=== PATIENT | male | born 1985 | race African-American/Black ===

== ENCOUNTER 2017-01-16 17:39 | Emergency (ER) | payer BC | END 2017-01-16 21:12 | disposition home or self-care (01) | LOC: D.ER 17:39 | DX: S16.1XXA Strain of muscle, fascia and tendon at neck level, initial encounter (principal); X58.XXXA Exposure to other specified factors, initial encounter; Y93.89 Activity, other specified; Y92.029 Unspecified place in mobile home as the place of occurrence of the external cause ==

== ENCOUNTER 2017-09-13 23:48 | Emergency (ER) | payer BC ==
[~2017-09-13] VITALS: Ht 175.3 cm; Wt 154.5 kg
[2017-09-13 23:52] VITALS: Ht 175.3 cm; Wt 154.5 kg
[2017-09-14 01:09] LABS: BASOPHILS 0.1 % (0-2); EOSINOPHILS 2.2 % (0-7); HEMATOCRIT 37.3 % (42.0-54.0); HEMOGLOBIN 12.7 g/dL (13.5-17.5); IMMATURE GRANULOCYTES 0.1 % (0-5); MCH 28.7 pg (26.0-34.0); MCV 84.2 fL (80.0-100.0); MEAN PLATELET VOLUME 11.3 fL (7.4-10.4); MONOCYTES 6.7 % (2-11); NEUTROPHILS 54.9 % (40-80); RBC 4.43 10x6/uL (4.20-6.10); RDW 12.9 % (11.5-14.5); WBC 7.3 10x3/uL (4.8-10.8)
[2017-09-14 01:17] LABS: PLATELET COUNT 202 10x3/uL (130-400)
[2017-09-14 01:35] LABS: ALBUMIN 3.1 g/dL (3.4-5.0); ALKALINE PHOSPHATASE 81 U/L (46-116); ALT (SGPT) 25 U/L (10-68); CALC OSMOLALITY 281 mosm/kg (275-300); CALCIUM 8.7 mg/dL (8.5-10.1); CARBON DIOXIDE 29.5 mmol/L (21.0-32.0); CHLORIDE - SERUM 106 mmol/L (98-107); CREATININE - SERUM 1.1 mg/dL (0.6-1.3); GLUCOSE 103 mg/dL (74-106); PROTEIN - SERUM 7.3 g/dL (6.4-8.2); SODIUM 142 mmol/L (136-145); UREA NITROGEN 11 mg/dL (7-18); eGFR NON AFRICAN AMERICAN 81 mL/min (90-120)
[2017-09-14 01:37] LABS: APPEARANCE CLEAR (CLEAR); BILIRUBIN NEGATIVE (NEGATIVE); COLOR YELLOW (YELLOW); GLUCOSE NEGATIVE (NEGATIVE); KETONE NEGATIVE (NEGATIVE); NITRITE NEGATIVE (NEGATIVE); PH 5.5 (5.0-6.0); PROTEIN NEGATIVE (NEGATIVE); UROBILINOGEN NORMAL (NORMAL)
[2017-09-14] MEDS ORDERED: NAPROSYN500 MG PO (02:51)
[2017-09-14 03:06] VITALS: BP 116/69
== END 2017-09-14 03:07 | disposition home or self-care (01) ==
LOC: D.ER 23:48
PROVIDERS: Family Medicine
DX: G62.9 Polyneuropathy, unspecified (principal); S39.011A Strain of muscle, fascia and tendon of abdomen, initial encounter; X58.XXXA Exposure to other specified factors, initial encounter; Y93.89 Activity, other specified; Y92.89 Other specified places as the place of occurrence of the external cause; R10.9 Unspecified abdominal pain

== ENCOUNTER → 2017-10-28 09:22 | Outpatient (CLI) | payer BC ==
[2017-09-13 23:52] VITALS: BMI 50.3
[~2017-10-28 09:22] MED LIST: NAPROSYN500 MG PO
== END | disposition home or self-care (01) ==
LOC: D.US 09:22
DX: R60.0 Localized edema (principal)

== ENCOUNTER 2018-05-21 14:10 | Emergency (ER) | payer BC ==
[~2018-05-21] VITALS: Ht 175.3 cm; Wt 187.3 kg
[2018-05-21 14:12] VITALS: Ht 175.3 cm; Wt 187.3 kg
[2018-05-21] MEDS ORDERED: TYLENOL W/CODEI1 TAB PO (15:03)
[2018-05-21] MEDS ORDERED: SULFAMETHOXAZOL1 TA3 PO (15:03)
[2018-05-21 15:38] VITALS: BP 119/76
== END 2018-05-21 15:38 | disposition home or self-care (01) ==
LOC: D.ER 14:10
DX: L02.12 Furuncle of neck (principal); I10 Essential (primary) hypertension

== ENCOUNTER → 2018-12-18 17:02 | Outpatient (CLI) | payer BC ==
[2018-05-21 14:12] VITALS: BMI 61.0
[~2018-12-18 17:02] MED LIST changes: +SULFAMETHOXAZOL1 TA3 PO; +TYLENOL W/CODEI1 TAB PO
== END | disposition home or self-care (01) ==
LOC: D.RAD 17:02
PROVIDERS: ATTEND Family Medicine
DX: M79.672 Pain in left foot (principal)

== ENCOUNTER → 2019-03-07 14:28 | Outpatient (CLI) | payer BC ==
[2018-05-21 14:12] VITALS: BMI 61.0
== END | disposition home or self-care (01) ==
LOC: D.US 13:00
PROVIDERS: ATTEND Surgery
DX: I87.2 Venous insufficiency (chronic) (peripheral) (principal)

== ENCOUNTER 2019-05-22 19:52 | Emergency (ER) | payer BC ==
[~2019-05-22] VITALS: Ht 175.3 cm; Wt 215.9 kg
[2019-05-22 20:06] VITALS: Ht 175.3 cm; Wt 215.9 kg
[2019-05-22] MEDS ORDERED: STERAPRED DS 1010 MG PO (21:25)
[2019-05-22] MEDS ORDERED: MUCINEX DM ER1 EAC1 PO (21:25)
[2019-05-22] MEDS ORDERED: ZPAK PO (21:25)
[2019-05-22 22:16] VITALS: BP 125/76
== END 2019-05-22 22:17 | disposition home or self-care (01) ==
LOC: D.ER 19:52
DX: J06.9 Acute upper respiratory infection, unspecified (principal); J40 Bronchitis, not specified as acute or chronic

== ENCOUNTER → 2019-11-29 09:41 | Outpatient (CLI) | payer BC ==
[2019-05-22 20:06] VITALS: BMI 70.3
[~2019-11-29 09:41] MED LIST changes: +MUCINEX DM ER1 EAC1 PO; +STERAPRED DS 1010 MG PO; +ZPAK PO
== END | disposition home or self-care (01) ==
LOC: D.MRI 09:41
PROVIDERS: ATTEND Clinical Nurse Specialist Family Health
DX: M25.562 Pain in left knee (principal)

== ENCOUNTER 2019-12-21 06:05 | Day surgery (SDC) | payer BC ==
[2019-12-19 13:50] LABS: HEMATOCRIT 41.9 % (42.0-54.0); HEMOGLOBIN 13.6 g/dL (13.5-17.5); MCH 28.3 pg (26.0-34.0); MCHC 32.5 g/dL (31.0-37.0); MCV 87.3 fL (80.0-100.0); MEAN PLATELET VOLUME 10.8 fL (7.4-10.4); RBC 4.8 10x6/uL (4.20-6.10); WBC 6.9 10x3/uL (4.8-10.8)
[~2019-12-21] VITALS: Ht 175.3 cm; Wt 191.0 kg
[2019-12-21 07:18] VITALS: BP 151/73; Ht 175.3 cm; Wt 191.0 kg
--- NOTE | 2019-12-21 11:41 | NUR ---
IV D/C'D WITH CANNULA INTACT, PRESSURE HELD AND DRSG PLACED. DISCHARGE INSTRUCTIONS GIVEN AND PT VERBALIZED AN UNDERSTANDING. OPERATIVE SITE IS WITH CDI DRSG AND UNCHANGED. DISCHARGED WITHOUT C/O
--- NOTE | 2019-12-22 09:02 | OP ---
PATIENT NAME: OLMAN HINKLE MEDICAL RECORD: [id number] [facility]ATION:[facility] AD[facility]ION DATE: SURGEON: TANG SEAMAN DO DATE OF OPERATION: 12/21/2019 PROCEDURE PERFORMED: Right knee arthroscopy with partial medial and partial lateral meniscectomies. 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 INDICATIONS: Mr. Hinkle is a 34-year-old male who has had right knee pain for quite some time. He is quite heavy as he weighs 421 pounds and 5 feet 9. I did get an MRI which showed the above findings and he has had this pain for quite some time. I informed him that we could get in there and trim out the meniscal tears, then hopefully give him some relief but that weight loss would be the best way to relieve his knee pain. He is aware of that and he is aware of the risks of surgery including infection, bleeding, damage to nerves or vessels, need for further surgery, continued pain, retear of the meniscus, blood clots, and even and he signed the consent. SURGEON: Tang Seaman DO DESCRIPTION OF PROCEDURE: The patient was taken to the operative suite and laid in supine position. He was given general anesthetic, sedated, and intubated. He was given 3 g of Ancef preoperatively. The right lower extremity was then prepped and draped in sterile fashion. Time-out was performed. Everyone was in agreement with the correct site, side, patient, and procedure. I began by flexing the knee down and making an incision over the further lateral portal and entered the trocar into the knee. I then inspected suprapatellar pouch. I saw some cartilage loose bodies seen there in the lateral gutter. These were flushed out with suction. In the medial gutter, there were no loose bodies. I then brought the knee from extension to flexion. I went to the medial compartment. The medial portal was then established with an 18-gauge spinal needle and 11-blade scalpel. Trocar was then brought in. I then brought in a biter and with valgus force on the knee with the assistance of Roddy Rangel, certified surgical supplies sterilizer, I opened up the medial knee joint and bit back with a biter and a shaver the meniscal tear on the medial meniscus from the posterior horn of the middle portion of the meniscus. I then noted grade III chondromalacia over the weightbearing portion of the medial femoral condyle and there were no loose bodies seen in it or loose meniscal pieces. I then checked the ACL. It was good. I then [id number]'ed the knee. I went to the lateral aspect of the knee. The lateral femoral condyle was in good repair. There was some grade III chondromalacia on the tibial plateau, the lateral femoral condyle and there was a tear in the white-white zone of the lateral meniscus. I then brought the shaver in and trimmed that back. I did a partial meniscectomy in the lateral side. I then inspected the trochlea. It had some cartilage tears and I with shaver debrided them and removed them and then removed any other loose bodies in the knee. The cartilage was floating around. I turned on the suction, turned the water off, removed excess fluid from the knee. Roddy Rangel, certified surgical supplies sterilizer, then injected the portal sites with 0.25% Marcaine with epinephrine approximately 5 mL in each and then closed OPERATIVE REPORT [id number] OLMAN HINKLE the portal sites with 4-0 Monocryl in inverted interrupted fashion, dressed with Steri-Strips, Adaptic, 4 x 4, ABD, Webril, Yakov wrap. He was then awakened and taken to recovery in stable condition. BLOOD LOSS: Minimal. COMPLICATIONS: None. 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 12/21/19 [facility] [address] [place] [address]
== END 2019-12-21 11:30 | disposition home or self-care (01) ==
LOC: D.OPS 06:05 → D.PAN 17:00 → D.OPS 17:00
PROVIDERS: Anesthesiology; ATTEND Orthopaedic Surgery
DX: S83.241A Other tear of medial meniscus, current injury, right knee, initial encounter (principal); X58.XXXA Exposure to other specified factors, initial encounter; M25.561 Pain in right knee; M94.261 Chondromalacia, right knee

== ENCOUNTER → 2020-06-17 09:51 | Outpatient (CLI) | payer BC ==
[2019-12-21 07:18] VITALS: BMI 62.3
== END | disposition home or self-care (01) ==
LOC: D.US 09:51
PROVIDERS: ATTEND Family Medicine
DX: R60.0 Localized edema (principal); M79.605 Pain in left leg

== ENCOUNTER → 2020-06-30 09:10 | Outpatient (CLI) | payer BC | END | disposition home or self-care (01) | LOC: D.CT 09:10 | DX: I70.209 Unspecified atherosclerosis of native arteries of extremities, unspecified extremity (principal) ==